=== PATIENT | female | born 1990 | race Caucasian/White ===

== ENCOUNTER 2021-04-30 00:59 | Emergency (ER) | payer MEDICAID, SELFPAY ==
[~2021-04-30] VITALS: Ht 172.7 cm; Wt 96.6 kg
[2021-04-30 01:05] VITALS: BP_SYST 113
[2021-04-30] MEDS ORDERED: KETOROLAC TROMETHAMINE 60 MG/2 ML VIAL IM ONE (01:40)
[2021-04-30] MEDS: ASPIRIN 81 MG TAB.CHEW PO ONE (01:40)
[2021-04-30] MEDS ORDERED: KETOROLAC TROMETHAMINE 30 MG VIAL ONE (02:00)
[2021-04-30 02:02] LABS: BASOPHILS % (AUTO) 0.1 % (0.0-2.0); HEMATOCRIT 40.1 % (36-48); HEMOGLOBIN 13.2 g/dL (12.0-16.0); LYMPHOCYTES # (AUTO) 4.4 K/uL (1.0-5.5); LYMPHOCYTES % (AUTO) 36.8 % (20.5-51.5); MEAN CORPUSCULAR HEMOGLOBIN 28 pg (27-31); MEAN CORPUSCULAR HGB CONC 33 % (32-36); MEAN CORPUSCULAR VOLUME 87 fL (79.0-98.0); MONOCYTES # (AUTO) 0.7 K/uL (0.0-1.0); MONOCYTES % (AUTO) 6.1 % (1.7-9.3); NEUTROPHILS # (AUTO) 6.8 K/uL (1.8-7.7); PLATELET COUNT (AUTO) 327 K/uL (130-430); RED BLOOD CELL COUNT(AUTO) 4.63 MIL/uL (4.2-6.2); RED CELL DISTRIBUTION WIDTH 13.4 % (9.0-15.0); WHITE BLOOD COUNT (AUTO) 11.9 K/uL (4.8-10.8)
[2021-04-30] MEDS: KETOROLAC TROMETHAMINE 60 MG/2 ML VIAL IM ONE (02:02)
[2021-04-30] MEDS: KETOROLAC TROMETHAMINE 30 MG VIAL IVP ONE (02:11)
[2021-04-30 02:15] LABS: CALCIUM 9.7 mg/dL (8.4-11.0); CREATININE 0.82 mg/dL (0.55-1.30); POTASSIUM 4.1 mmol/L (3.5-5.1)
[2021-04-30 02:27] LABS: TOTAL BILIRUBIN 0.4 mg/dL (0.0-1.0)
[2021-04-30 02:33] LABS: ALBUMIN 3.7 g/dL (3.4-4.8)
[2021-04-30] MEDS: LORazepam 2 MG/ML VIAL IVP ONE ×2 (02:36→03:24)
[2021-04-30] MEDS ORDERED: SERT100T PO (02:46)
[2021-04-30 03:10] LABS: BARBITURATE, URINE NEGATIVE (NEG <=200); OPIATE, URINE POSITIVE (NEG <=100); URINE OXYCODONE SCREEN POSITIVE (NEG <=100)
[2021-04-30 03:11] LABS: BENZODIAZEPINE, URINE NEGATIVE (NEG <=150); CANNABINOID, URINE NEGATIVE (NEG <=50); COCAINE, URINE NEGATIVE (NEG <=150); METHAMPHETAMINES SCREEN,URINE NEGATIVE (NEG <=500); PHENCYCLIDINE SCREEN,URINE NEGATIVE (NEG <=25); UR TRICYCLIC ANTIDEPRESSANTS NEGATIVE (NEG <=300); URINE AMPHETAMINE NEGATIVE (NEG <=500); URINE METHADONE NEGATIVE (NEG <=200); URINE PROPOXYPHENE SCREEN NEGATIVE (NEG <=300)
[2021-04-30] MEDS: MAGNESIUM SULFATE/D5W 100 ML IV ONE (03:45)
[2021-04-30 04:22] VITALS: BP_SYST 134
== END 2021-04-30 04:23 | disposition short-term general hospital (02) ==
LOC: SED 00:59
DX: I48.92 Unspecified atrial flutter (principal); R07.2 Precordial pain; I10 Essential (primary) hypertension; Z79.899 Other long term (current) drug therapy; Z20.822 Contact with and (suspected) exposure to COVID-19
CPT/HCPCS: 36415; 71045; 80053; 80307; 81025; 83735; 83880; 84484; 84702; 85025; 87426; 93005; 96365; 96375; 96376; 99285; J1885; J2060